=== PATIENT | female | born 1955 | race Native Hawaiian/Other Pacific Islander ===

== ENCOUNTER 2017-10-22 14:13 | Outpatient (CLI) | payer OTHER ==
[2017-10-22 14:54] LABS: PLATELET COUNT 278 K/uL (152-353)
[2017-10-22 15:19] LABS: POTASSIUM 4.3 mmol/L (3.6-5.2); SODIUM 135 mmol/L (136-145)
== END 2017-10-22 15:15 | disposition home or self-care (01) ==
LOC: LAB 14:13
PROVIDERS: Family Medicine
DX: E11.9 Type 2 diabetes mellitus without complications (principal); E78.4 Other hyperlipidemia; Z78.0 Asymptomatic menopausal state; E66.8 Other obesity; E55.9 Vitamin D deficiency, unspecified
CPT/HCPCS: 80053; 80061; 81000; 82043; 82306; 82570; 82607; 82746; 83036; 83735; 84439; 84443; 84550; 85027